=== PATIENT | female | born 1990 | race Hispanic/Latino ===

== ENCOUNTER 2022-10-15 21:00 | Emergency (ER) | payer MEDICAID ==
[2022-10-15] MEDS ORDERED: Fluorescein Opthalmic Strip ONE (21:14)
[2022-10-15] MEDS ORDERED: Proparacaine 0.5% Opth 15 ML BOT ONE (21:15)
== END 2022-10-15 21:23 | disposition home or self-care (01) ==
LOC: ERS 21:00
DX: H10.9 Unspecified conjunctivitis (principal)
CPT/HCPCS: 99282